=== PATIENT | female | born 1950 | race Caucasian/White ===

== ENCOUNTER 2016-04-05 08:44 | Day surgery (SDC) | payer MEDICARE, OTHER ==
--- NOTE | 2016-04-03 14:04 | HP ---
PROCEDURE DATE: 04/05/16 HISTORY OF PRESENT ILLNESS: The patient is a 66 y/o this January with nausea and flu-like symptoms, some chills. Initially, she thought it was secondary to some medication she is on. She was having a little bit of right back and chest area pain. She ended up having US that showed cholelithiasis and some gallbladder wall thickening. PAST MEDICAL HISTORY: Hypothyroidism. CURRENT MEDICATIONS: Include Bupropion, duloxetine, Synthroid, trazodone, Zofran, Zyrtec. ALLERGIES: NKDA. PAST SURGICAL HISTORY: Had tubal surgery in the past. She had foot surgery and hysterectomy in the past. FAMILY HISTORY: Diabetes, heart disease, hypertension. SOCIAL HISTORY: No smoking or alcohol abuse. REVIEW OF SYSTEMS: 10 systems reviewed. No chest pains or palpitations. Other systems negative or noncontributory other than above and per preadmission questionnaire. PHYSICAL EXAMINATION: GENERAL: No acute distress. HEENT: Sclerae nonicteric. NECK: No JVD. CHEST: Equal excursion. Nonlabored breathing. CVS: Regular rate and rhythm. ABDOMEN: Soft. No peritoneal signs. Minimal tenderness in right upper quadrant/right flank. EXTREMITIES: No significant edema. NEURO: Alert, moving extremities symmetrically. No gross motor deficits noted. IMPRESSION: 1. SYMPTOMATIC CHOLELITHIASIS, PROBABLE CHRONIC CHOLECYSTITIS. FEEL THE PATIENT WOULD BENEFIT FROM CHOLECYSTECTOMY. She was shown the risk sheet and gallbladder pamphlet and explained the procedure in detail, but not limited to, bleeding; infection; risk of trocar injury or hernia; small risk of bowel, bladder, or blood vessel injury; small risk of bile leak, bile duct injury, or retained stone or sludge possibly requiring further procedures either open or endoscopic retrograde cholangiopancreatography; general risks of anesthesia, deep vein thrombosis, pulmonary embolism, or pneumonia; postoperative risks of nausea, vomiting, aches, or pains as well as risk of bloating; risk of constipation and/or loose stools possibly chronic in nature. She understands as well as the risk of possibility of converting to an open procedure requiring hospital stay as well as the possibility that this procedure may not improve her symptoms and she may need further work-up and/or testing or other studies or procedures. She understands and agrees to the planned procedure. Will proceed with laparoscopic cholecystectomy, possible open as an outpatient.
[~2016-04-05 08:44] MED LIST: APRESOLINE 20 MG/ML INJ IV ONE; BLOXIVERZ IV ONE; DIPRIVAN 200 MG/20 ML IV ONE; Decadron 4 MG INJ IV ONE; Ephedrine Sulfate 50 MG/ML IV ONE; Lactated Ringers 1,000 ML IV ONE; ROBINUL IV ONE; SUBLIMAZE 100 MCG/2 ML IV ONE; Sensorcaine 0.25% 10 ML ONE; TORAdol 30 mg Injection IV ONE; TRANDATE 20 MG/5 ML SYRINGE IV ONE; Versed 2 MG/2 ML Injection IV ONE; Zemuron 100 MG/10 ML IV ONE; Zofran 4 MG/2 ML VIAL IV ONE
[2016-04-05] MEDS ORDERED: MEFOXIN 2 GM PREMIX** 50 ML IV ONE ×2 (08:52→09:01)
[2016-04-05] MEDS ORDERED: Pepcid 20 MG VIAL IV ONE ×2 (08:52→09:01)
[2016-04-05] MEDS ORDERED: Lactated Ringers 1,000 ML IV SCH (09:00)
[2016-04-05] MEDS ORDERED: Lactated Ringers 1,000 ML IV ONE (09:01)
[2016-04-05] MEDS ORDERED: OFIRMEV 100 ML IV ONE (10:38)
[2016-04-05] MEDS ORDERED: SUBLIMAZE 100 MCG/2 ML ONE (12:03)
[2016-04-05] MEDS ORDERED: NORCO 5/325 MG PO PRN (13:01)
--- NOTE | 2016-04-05 13:41 | OP ---
SURGERY DATE: 04/05/15 SURGERY TIME: 1026 PREOPERATIVE DIAGNOSIS: 1. SYMPTOMATIC CHOLELITHIASIS, CHRONIC CHOLECYSTITIS. POSTOPERATIVE DIAGNOSIS: 1. SYMPTOMATIC CHOLELITHIASIS, CHRONIC CHOLECYSTITIS. PROCEDURE: 1. Laparoscopic cholecystectomy. SURGEON: Dr. Mario Seo. ANESTHESIA: General. ESTIMATED BLOOD LOSS: Minimal. INDICATIONS: As noted above. Risks and benefits explained in detail, but not limited to. Consent was obtained. DESCRIPTION OF PROCEDURE AND FINDINGS: The patient was taken to the OR. General anesthesia was induced. The abdomen was prepped and draped in the usual sterile fashion. After official time-out, no disagreement in planned procedure. Transverse incision made at the supraumbilical area. Fascia grasped and pulled up. Veress needle inserted. Tested with saline. Pneumoperitoneum accomplished insufflating from an opening pressure of 0-15. An 11 mm bladeless port and camera were inserted without difficulty followed by two 5 mm right upper quadrant ports and a 5 mm epigastric port. The gallbladder was grasped and retracted up over the edge of the liver. Fibrofatty adhesions were carefully dissected from posterolateral to anterior fashion slowly, carefully dissecting down the extensive inflammation around the cystic duct/infundibular area junction. The main cystic artery was carefully isolated, clipped X 3, and divided. This opened up the angle at the cystic duct/infundibular area. Slowly, carefully well skeletonized so the critical view was obtained both anteriorly and posteriorly. Once this was done, the cystic duct was then clipped X 3 and divided. Additional oozing side branches off the cystic artery were clipped as necessary staying directly on the gallbladder wall. The gallbladder was slowly, carefully dissected free from its dense, almost concrete attachments to the liver bed. One of the graspers tore a small, little, tiny hole in the gallbladder spilling a small amount of bile. There was no evidence of any stone spillage. The gallbladder was slowly, carefully dissected free staying directly on the gallbladder wall elevating it well away from the liver bed. Just prior to releasing the final attachments to the anterior edge of the liver, the liver bed reinspected. Clips noted to be in placed in the cystic duct/cystic artery stumps. There were no signs of any active bleeding or bile leakage from the liver bed itself. Clips noted to be in place in the cystic duct/cystic artery stumps. The gallbladder was released from its final attachments to the anterior edge of the liver, placed in a Pleatman's sac, and pulled out the umbilical wound. There was a large enough group of stones to require spreading with the clamp. It should be noted the fragile skin just a little bit making the skin incision slightly larger in this area. The gallbladder was able to be pulled free in the Pleatman's sac and passed off. Port was replaced. A copious amount of irrigation accomplished lateral to the liver and subhepatic space, irrigating until clear. Liver bed reinspected. Clips noted to be in place in the cystic duct/cystic artery stumps. There were no signs of any active bleeding or bile leakage at this point with the clips noted to be in place at the cystic duct/cystic artery stumps. It was felt there was no benefit of drain placement. At this point, the fascial defect in the umbilical area was closed with puncture closure device under direct vision with the camera after a copious amount of irrigation, irrigating as clear as possible. Pneumoperitoneum decompressed. Wounds irrigated out. Additional UR6 0-Vicryl was placed on the fascia that had been enlarged slightly to allow for the gallbladder removal at the supraumbilical port site under direct vision with the camera. Copious amount of irrigation, irrigating until clear. Skin incision closed with 4-0 Vicryl. Steri-strips and sterile dressing applied. 0.25% Marcaine local had been injected along each skin incision and fascial defect. The patient tolerated the procedure well. There were no immediate complications. Findings were discussed with the family out in the waiting area.
[2016-04-05 13:47] VITALS: BP 101/48; O2SAT 94
[2016-04-05 13:55] VITALS: PULSE 68
== END 2016-04-05 14:00 | disposition home or self-care (01) ==
LOC: SDC 08:44
PROVIDERS: ATTEND Surgery
PROC: 0FT44ZZ Resection of Gallbladder, Percutaneous Endoscopic Approach (ICD-10-PCS; principal; 2016-04-05)
DX: K80.10 Calculus of gallbladder with chronic cholecystitis without obstruction (principal); E03.9 Hypothyroidism, unspecified; Z79.899 Other long term (current) drug therapy
CPT/HCPCS: 00790; 36415; J0360; J0694; J1100; J1885; J2250; J2405; J2704; J2710; J3010

== ENCOUNTER 2018-02-01 05:51 | Day surgery (SDC) | payer MEDICARE, OTHER ==
[2018-02-01] MEDS ORDERED: DIPRIVAN 200 MG/20 ML IV ONE (05:52)
[2018-02-01] MEDS ORDERED: Ketamine HCl 50 MG/ML IV ONE (05:52)
[2018-02-01] MEDS ORDERED: Lactated Ringers 1,000 ML IV SCH (06:30)
[2018-02-01 08:54] VITALS: BP 170/80; PULSE 71; O2SAT 97
--- NOTE | 2018-02-01 10:26 | OP ---
SURGERY DATE/TIME: 02/01/2018 0747 PREOPERATIVE DIAGNOSES: 1) Persistent nausea. 2) Weight loss. POSTOPERATIVE DIAGNOSIS: Gastric polyps. PROCEDURE: EGD. SURGEON: Carlos Ware M.D. ANESTHESIA: MAC by Mario Sarkar CRNA. ESTIMATED BLOOD LOSS: Minimal. SPECIMENS: Cold forceps polypectomy of gastric polyp. DESCRIPTION OF PROCEDURE: After informed written consent was obtained, the patient was taken to the endoscopy suite. She underwent monitored anesthesia and a bite block was inserted. The endoscope was inserted in the posterior oropharynx and under direct visualization the posterior oropharynx was traversed. The esophageal mucosa was normal upon entry into the gastric cavity and there was a normal rugated gastric mucosa. There were small gastric polyps but no areas of bleeding or ulceration were present. The pylorus was traversed and the duodenum had a normal mucosal appearance free of any lesions or defects. Upon withdrawal again gastric polyps were noted. A financial services representative lesion was removed in its entirety with cold forceps. The gastroesophageal junction and esophageal mucosa again appeared normal upon withdrawal. The scope was removed and the patient was transferred to the recovery room in good condition.
== END 2018-02-01 09:08 | disposition home or self-care (01) ==
LOC: SDC 05:51
PROVIDERS: ATTEND Family Medicine
DX: K31.7 Polyp of stomach and duodenum (principal); R11.0 Nausea; R63.4 Abnormal weight loss
CPT/HCPCS: 88305; 94250; J2704

== ENCOUNTER 2019-04-23 08:33 | Day surgery (SDC) | payer MEDICARE, OTHER ==
--- NOTE | 2019-04-23 08:53 | HP ---
DATE OF SURGERY: 04/23/2019 HISTORY OF PRESENT ILLNESS: The patient is a 69 year-old had some bad reflux recently upper esophagus, some problems with bread and large pills getting stuck in the upper esophagus. She is in need of upper endoscopy for further evaluation. PAST MEDICAL HISTORY: Hypothyroidism. Depression. Osteopenia. Macular degeneration. PAST SURGICAL HISTORY: Cholecystectomy in the past. Hysterectomy. Foot surgery. Tubal in the past. MEDICATIONS: Synthroid. Wellbutrin. Preservision. Zyrtec. Calcium. Omeprazole. CBD oil. ALLERGIES: NKDA. FAMILY HISTORY: Hypertension, heart disease, diabetes. No family history of esophageal cancer. SOCIAL HISTORY: No smoking or alcohol abuse. REVIEW OF SYSTEMS: Fourteen systems reviewed. No chest pain or palpitations other systems negative or noncontributory as above and per preadmission questionnaire. PHYSICAL EXAMINATION: GENERAL: No acute distress. HEENT: Sclerae nonicteric. NECK: No JVD. CHEST: Equal excursion, nonlabored breathing. CVS: Regular rate and rhythm. ABDOMEN: Soft. EXTREMITIES: No significant edema. NEURO: Alert, oriented, moving extremities symmetrically. No gross motor deficits noted. IMPRESSION: Dysphagia, increased reflux. She is in need of upper endoscopy possible biopsy, possible dilatation. General risk of bleeding or infection, risk of bowel injury or perforation possibly requiring open procedure, risk of missed or nondiagnosis or incomplete exam possibly requiring barium swallow, other studies or procedures. She understands if dilatation accomplished that it might need to be repeated again down the road. She also understands there is a possibility this could be more of a functional or neurologic issue and that dilatation may not improve her symptoms. She understands and agrees to the planned procedure and will proceed with EGD with possible biopsy, possible dilatation as an outpatient.
[2019-04-23] MEDS ORDERED: Lactated Ringers 1,000 ML IV SCH (09:30)
[2019-04-23] MEDS ORDERED: DIPRIVAN 200 MG/20 ML IV ONE ×2 (10:39→10:56)
[2019-04-23 12:10] VITALS: O2SAT 98
[2019-04-23 12:19] VITALS: BP 189/77; PULSE 60
--- NOTE | 2019-04-23 14:47 | OP ---
SURGERY DATE/TIME: 04/23/2019 1041 PREOPERATIVE DIAGNOSIS: Dysphagia, increased reflux. POSTOPERATIVE DIAGNOSES: 1) Minimal to mild gastritis. 2) Schatzki's ring distal esophagus; rule out obstruction. 3) Proximal fundal polyps versus hyperplasia, path pending. 4) Symptomatic proximal esophageal narrowing and spasm. 5) Dilatation. PROCEDURES: 1) EGD with cold biopsy of the antrum to evaluate for Helicobacter pylori. 2) Cold biopsy of fundal polyps versus hyperplasia proximal stomach. 3) Proximal esophageal dilatation (symptomatic proximal esophageal narrowing and spasm) size 20 balloon dilator. SURGEON: Dr. Mario Seo. ANESTHESIA: MAC. ESTIMATED BLOOD LOSS: Minimal. INDICATIONS: As noted above. Risks and benefits explained in detail and not limited to and consent obtained. DESCRIPTION OF PROCEDURE AND FINDINGS: The patient is taken to the endoscopy room. MAC anesthesia introduced. After official time out and no disagreement with planned procedure, video gastroscope passed down the oropharynx. It appeared to have some proximal esophageal narrowing and spasm. There was no obvious mass or lesion to biopsy. As she is having symptoms there, it was felt worthwhile attempting a trial of dilatation with balloon at the end of the procedure. The scope was able to be just passed through here through the distal esophagus to the patent pylorus to the junction of the second and third portion of the duodenum. Duodenum and duodenal bulb were grossly unremarkable. Back in the stomach she had some minimal to mild gastritis. Cold biopsy taken to evaluate for Helicobacter pylori. On retroflex the gastroesophageal junction snug against the scope. No signs of any obvious significant hiatal hernia. No signs of any obvious ulcers in the proximal stomach. She had multiple smooth fundal area polyps versus hyperplasia. Cold biopsies taken of several of these. The scope pulled back to the gastroesophageal junction. Z-line was crisp. There did appear to be a Schatzki's ring but this did not appear to be causing any symptomatic narrowing or obstruction here at this point. It was felt that this area did not need dilated at this moment. No signs of any obvious mucosal lesions on withdrawal of the scope up to the proximal esophageal narrowed area. Again, there was no evidence of any mass or lesion to biopsy but because she is having symptoms there it was felt she would benefit from esophageal dilatation today. Therefore the scope was passed back down in the stomach. A 20 balloon catheter carefully inserted. It was then pulled back to the narrowed proximal esophageal area and gradually inflated first stage 45 seconds, second stage 45 seconds, final stage size 20 balloon dilator for 2 minutes. The balloon catheter is then released and withdrawn. The scope much more easily passed through this area. There was mild superficial mucosal abrasion. There did not appear to be any evidence of full thickness issues or injury secondary to balloon dilatation of this symptomatic proximal esophageal narrowing and spasm. The scope is withdrawn. The patient tolerated the procedure well. There were no immediate complications. Findings discussed with the family out in the waiting area.
== END 2019-04-23 12:22 | disposition home or self-care (01) ==
LOC: SDC 08:33
PROVIDERS: ATTEND Surgery
DX: K29.70 Gastritis, unspecified, without bleeding (principal); K22.2 Esophageal obstruction; K31.7 Polyp of stomach and duodenum
CPT/HCPCS: 88305; 99100; C1726; J2704

== ENCOUNTER 2020-07-28 08:37 | Day surgery (SDC) | payer MEDICARE, OTHER ==
--- NOTE | 2020-07-28 08:03 | HP ---
DATE OF SURGERY: 07/28/2020 HISTORY OF PRESENT ILLNESS: The patient is a 70 year-old with some dysphagia with some solids or pills at times. She has history of hyperplastic polyps that were clumped together in the past. She is in need of re-evaluation given this group of polyps and given her dysphagia she needs upper endoscopy possible biopsy, possible dilatation. PAST MEDICAL HISTORY: Hypothyroidism. Arthritis. Macular degeneration. Hypertension. Depression. PAST SURGICAL HISTORY: Tubal ligation. Hysterectomy. Cholecystectomy. Foot surgery. MEDICATIONS: Synthroid, liothyronine, duloxetine, bupropion, metoprolol, Zyrtec, calcium, PreserVision, CBD oil. ALLERGIES: NKDA. FAMILY HISTORY: Heart disease. Diabetes. Liver disease. SOCIAL HISTORY: No significant alcohol abuse. REVIEW OF SYSTEMS: Fourteen systems reviewed. No chest pain or palpitations. Other systems negative or noncontributory as above and per preadmission questionnaire. PHYSICAL EXAMINATION: GENERAL: No acute distress. HEENT: Sclerae nonicteric. NECK: No JVD. CHEST: Equal excursion, nonlabored breathing. CVS: Regular rate and rhythm. ABDOMEN: Soft. No peritoneal signs. EXTREMITIES: No significant edema. NEURO: Alert, oriented, moving extremities symmetrically. PSYCH: Appropriate mood and affect. IMPRESSION: Dysphagia, history of some gastric polyps in the past. She is in need of EGD possible biopsy possible dilatation. Risks and benefits explained in detail including but not limited to bleeding or infection, risk of bowel injury or perforation possibly requiring further procedure, risk of missed or nondiagnosis or incomplete exam possibly requiring other studies, possibility dilatation performed and improves her swallowing may need to be repeated again down the road at some point. She also understands the possibility it could be more functional or neurologic issue and dilatation may not improve her symptoms. If she does not have a narrowed area then dilatation may not be required. She understands and agrees to the planned procedure, proceed with EGD possible biopsy possible dilatation as an outpatient.
[2020-07-28] MEDS ORDERED: Lactated Ringers 1,000 ML IV SCH (09:00)
[2020-07-28] MEDS ORDERED: Lactated Ringers 1,000 ML IV ONE ×2 (09:22→11:03)
[2020-07-28] MEDS ORDERED: DIPRIVAN 200 MG/20 ML IV ONE ×2 (10:46→11:00)
[2020-07-28 11:50] VITALS: O2SAT 94
[2020-07-28 12:18] VITALS: BP 151/78; PULSE 61
--- NOTE | 2020-07-29 09:37 | OP ---
SURGERY DATE/TIME: 07/28/2020 1045 PREOPERATIVE DIAGNOSIS: Dysphagia, prior history of gastric polyp, in need of follow up upper endoscopy possible dilatation. POSTOPERATIVE DIAGNOSES: 1) Proximal esophageal narrowing and spasm without any obvious mass to biopsy. 2) Small proximal gastric polyps. 3) Minimal to mild gastritis. PROCEDURES: 1) EGD with cold biopsy of antrum for Helicobacter pylori. 2) Cold biopsy polyp in the fundus. 3) Proximal esophageal dilatation (size 20 balloon dilator). SURGEON: Dr. Mario Seo. ANESTHESIA: MAC. ESTIMATED BLOOD LOSS: Minimal. INDICATIONS: As noted above. Risks and benefits explained in detail and not limited to and consent obtained. DESCRIPTION OF PROCEDURE AND FINDINGS: The patient is taken to the endoscopy room. MAC anesthesia introduced. After official time out and no disagreement with planned procedure, a bite block positioned. Video gastroscope passed down the oropharynx. There was some narrowing and spasm in the proximal esophagus. There is no evidence of any obvious mass or lesion to biopsy. Scope was able to be just passed through here. As she is having symptoms here it is felt this warranted dilatation at the end of the procedure. The scope is passed back down through the patent pylorus to the junction of the second and third portion of the duodenum. The third, second and first portion of the duodenum grossly unremarkable. Back in the stomach she had some mild gastric erythema, some minimal to mild gastritis. Cold biopsy taken to evaluate for Helicobacter pylori. Good hemostasis noted. There were no signs of any obvious ulcers. On retroflex some small gastric polyps in the proximal stomach in the fundus this seemed to be less than impressive than last time she had endoscopy but cold biopsies taken again to evaluate for any changes. Good hemostasis was noted. Biopsy sent off. The gastroesophageal junction was about 39 cm. She did have a little bit of Schatzki ring but there was not any narrowing here to cause any issues so it was felt this did not warrant any intervention right now. Otherwise the remainder of the esophageal mucosa appeared unremarkable up to the proximal esophageal narrowing and spasm. Again, there was no obvious mass or mucosal lesion to biopsy in this area but it was felt given her symptoms here given the symptomatic narrowing she warranted dilatation. Therefore the scope was passed back down in the stomach. A 20 balloon catheter carefully inserted and carefully pulled back up to the proximal esophageal narrowing and spasm area. It was carefully inflated first stage size 18 for 30 to 45 seconds, second stage for 45 seconds, size 19 in the final stage, size 20 balloon dilator for 2 minutes. The balloon catheter was then decompressed and carefully withdrawn. The scope much more easily passed through this area back down the stomach and carefully withdrawn. There is no evidence of any full thickness issues or injury secondary to dilatation. There was superficial mucosal abrasion up in the dilated area but no evidence of any gross full thickness issues. The scope is withdrawn. The patient tolerated the procedure well. There were no immediate complications. Findings discussed with the family out in the waiting area. She will do room temperature liquids for four hours and advance diet as tolerated.
== END 2020-07-28 12:25 | disposition home or self-care (01) ==
LOC: SDC 08:37
PROVIDERS: ATTEND Surgery
DX: K22.2 Esophageal obstruction (principal); K29.70 Gastritis, unspecified, without bleeding; K31.7 Polyp of stomach and duodenum; I10 Essential (primary) hypertension; E03.9 Hypothyroidism, unspecified; Z79.899 Other long term (current) drug therapy; Z87.19 Personal history of other diseases of the digestive system
CPT/HCPCS: 81001; 99100; C1726; J2704

== ENCOUNTER 2020-08-14 10:29 | Emergency (ER) | payer MEDICARE, OTHER ==
--- NOTE | 2020-08-14 10:54 | ERPHSYRPT ---
- History of Present Illness Time Seen by Provider: 08/14/20 10:54 Source: patient, family Exam Limitations: no limitations Physician History: This is a 70-year-old white female patient of Dr. Baker who has a history of hypothyroidism, hypertension and depression. In the last 3 weeks she has had sick significant diarrheal episodes and ultimately was treated after a few emergency room department visits and her diarrheal episodes have subsided. She has known left-sided kidney stone that has been observed. Her primary complaint today is weakness and generalized muscle aches and pains. She does not specifically have chest pain. She does have some shortness of breath with exertion. She has no significant abdominal pain. She intermittently has frequency alternating with normal passage of urine. She has no dysuria. She does not have significant flank pain. She has no cough. She has not had a fever. Again, her primary complaint today is generalized muscle aches and pains and weakness. She has had no nausea vomiting and no further diarrhea Timing/Duration: week(s) (1) Severity: moderate Modifying Factors: Improves With: movement Associated Symptoms: shortness of breath, weakness, No nausea, No vomiting, No abdominal pain, No cough, No chest pain, No fever, No syncope Allergies/Adverse Reactions: No Known Drug Allergies Allergy (Verified 08/14/20 10:59) Home Medications: Cetirizine HCl [Zyrtec] 10 mg PO DAILY 04/17/19 [History] Levothyroxine Sodium 75 Mcg [Synthroid 75 Mcg] 88 mcg PO DAILY 04/17/19 [History] Liothyronine Sodium [Cytomel] 5 mcg PO DAILY 04/17/19 [History] Cannabidiol (Cbd) [Epidiolex] 1 ml PO DAILY 04/23/19 [History] Duloxetine HCl [Cymbalta] 60 mg DAILY 07/15/20 [History] Vit C/E/Zn/Coppr/Lutein/Zeaxan [Preservision Areds 2 Softgel] 1 each PO BID 07/15/20 [History] Bupropion HCl [Wellbutrin Xl] 300 mg PO DAILY 07/28/20 [History] Metoprolol Tartrate 25 mg [Lopressor 25MG Tab] 25 mg PO DAILY 07/28/20 [History] Travel Risk - International Travel Have you traveled outside of the country in past 3 weeks: No - Coronavirus Screening Are you exhibiting any of the following symptoms?: No Close contact with a COVID-19 positive Pt in past 14-21 Days: No - Review of Systems Constitutional: Weakness Eyes: No Symptoms Ears, Nose, & Throat: No Symptoms Respiratory: No Symptoms Cardiac: No Symptoms Abdominal/Gastrointestinal: No Symptoms Genitourinary Symptoms: No Symptoms Musculoskeletal: Myalgias Skin: No Symptoms Neurological: No Symptoms Psychological: No Symptoms Endocrine: No Symptoms Hematologic/Lymphatic: No Symptoms Immunological/Allergic: No Symptoms All Other Systems: Reviewed and Negative - Past Medical History Pertinent Past Medical History: Yes Neurological History: No Pertinent History ENT History: Cataracts, Macular Degeneration Cardiac History: No Pertinent History, Deep Vein Thrombosis, Hypertension Respiratory History: Sleep Apnea Endocrine Medical History: Hypothyroidism Musculoskeletal History: Arthritis, Rheumatoid Arthritis GI Medical History: GERD, Gallbladder Disease History: No Pertinent History Psycho-Social History: Depression Female Reproductive Disorders: Other Other Medical History: ovarian cyst,skin [id number],states borderline sleep apnea, has machine but doesnt use,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 - Past Surgical History Past Surgical History: Yes Neuro Surgical History: No Pertinent History Cardiac: No Pertinent History Respiratory: No Pertinent History Gastrointestinal: Cholecystectomy Genitourinary: No Pertinent History Musculoskeletal: Orthopedic Surgery Female Surgical History: Hysterectomy, Tubal Ligation Other Surgical History: bilateral foot bunionectomy and hammertoe repairs,bilat foot arch implants, - Social History Smoking Status: Never smoker Exposure to second hand smoke: Yes Drug Use: none - Nursing Vital Signs Nursing Vital Signs: Initial Vital Signs Temperature 97.2 F 08/14/20 10:49 Pulse Rate 84 08/14/20 10:49 Respiratory Rate 18 08/14/20 10:49 Blood Pressure 180/99 08/14/20 10:49 O2 Sat by Pulse Oximetry 98 08/14/20 10:49 Pain Scale Pain Intensity 7 - Physical Exam General Appearance: no apparent distress, alert, anxiety Eye Exam: PERRL/EOMI, eyes nml inspection Ears, Nose, Throat Exam: normal ENT inspection, moist mucous membranes Neck Exam: normal inspection, non-tender, supple, full range of motion Respiratory Exam: normal breath sounds, lungs clear, airway intact, No chest tenderness, No respiratory distress Cardiovascular Exam: regular rate/rhythm, normal heart sounds, normal peripheral pulses Gastrointestinal/Abdomen Exam: soft, normal bowel sounds, No tenderness Pelvic Exam: not done Rectal Exam: not done Back Exam: normal inspection, normal range of motion, No CVA tenderness, No vertebral tenderness Extremity Exam: normal inspection, normal range of motion, pelvis stable Neurologic Exam: alert, oriented x 3, cooperative, handicapper harness racing II-XII nml as tested, normal mood/affect, nml cerebellar function, nml station & gait, sensation nml Skin Exam: normal color, warm, dry Lymphatic Exam: No adenopathy SpO2 Interpretation: normal O2 Delivery: Room Air - Course Nursing assessment & vital signs reviewed: Yes EKG Interpreted by Me: RATE (82), Sinus Rhythm, NORMAL AXIS, NORMAL INTERVALS, NORMAL QRS, NORMAL ST-T, Other (No acute ischemic changes. There is no comparison EKG available) Ordered Tests: Active Orders 24 hr Category Date Time Status EKG-ER Only STAT Care 08/14/20 11:34 Active IV Insertion STAT Care 08/14/20 11:34 Active ABDOMEN AND PELVIS W/0 CONTRAS [CT] Stat Exams 08/14/20 11:36 Completed BLOOD CULTURE Stat Lab 08/14/20 11:36 Ordered CBC W DIFF Stat Lab 08/14/20 11:35 Completed CMP Stat Lab 08/14/20 11:34 Completed CULTURE,URINE Stat Lab 08/14/20 11:42 Received D-DIMER QUANTITATIVE Stat Lab 08/14/20 11:40 Completed INFLUENZA A+B TONY Stat Lab 08/14/20 13:10 Completed Lactic Acid Stat Lab 08/14/20 11:34 Completed MAGNESIUM Stat Lab 08/14/20 11:34 Completed T4 (Thyroxine) Stat Lab 08/14/20 Completed TROPONIN Q3H Lab 08/14/20 11:45 Completed TROPONIN Q3H Lab 08/14/20 14:45 Ordered TROPONIN Q3H Lab 08/14/20 17:45 Ordered TROPONIN Q3H Lab 08/14/20 20:45 Ordered TROPONIN Q3H Lab 08/14/20 23:45 Ordered TSH [TSH, 3RD Generation] Stat Lab 08/14/20 11:41 Completed UA W/RFX UR CULTURE Stat Lab 08/14/20 11:42 Completed Medication Summary Discontinued Medications Generic Name Dose Route Start Last Admin Trade Name Freq PRN Reason Stop Dose Admin Sodium Chloride 1,000 mls @ 999 mls/hr 08/14/20 11:34 08/14/20 13:26 Sodium Chloride 0.9% 1000 Ml IV 08/14/20 12:34 Infused .Q1H1M STA Infusion Sodium Chloride Confirm 08/14/20 11:43 Sodium Chloride 0.9% 1000 Ml Administered 08/14/20 11:44 Dose 1,000 mls @ ud .ROUTE .STK-MED ONE Lab/Rad Data: Laboratory Result Diagrams 08/14/20 11:35 08/14/20 11:34 Laboratory Results 08/14/20 08/14/20 08/14/20 Range/Units Unknown 13:10 11:45 WBC (4.0-10.5) K/mm3 RBC (4.1-5.4) M/mm3 Hgb (12.0-16.0) gm/dl Hct (35-47) % MCV (78-100) fl MCH (26-32) pg MCHC (32-36) g/dl RDW (11.5-14.0) % Plt Count (150-450) K/mm3 MPV (7.5-11.0) fl Gran % (36.0-66.0) % Eos # (Auto) (0-0.5) Absolute Lymphs (auto) (1.0-4.6) Absolute Monos (auto) (0.0-1.3) Lymphocytes % (24.0-44.0) % Monocytes % (0.0-12.0) % Eosinophils % (0.00-5.0) % Basophils % (0.0-0.4) % Absolute Granulocytes (1.4-6.9) Basophils # (0-0.4) D-Dimer (215-500) ng/mL Sodium (137-145) mmol/L Potassium (3.5-5.1) mmol/L Chloride (98-107) mmol/L Carbon Dioxide (22-30) mmol/L Anion Gap (5-15) MEQ/L BUN (7-17) mg/dL Creatinine (0.52-1.04) mg/dL Estimated GFR ML/MIN Glucose (74-106) mg/dL Lactic Acid (0.4-2.0) Calcium (8.4-10.2) mg/dL Magnesium (1.6-2.3) mg/dL Total Bilirubin (0.2-1.3) mg/dL AST (14-36) U/L ALT (0-35) U/L Alkaline Phosphatase (38-126) U/L Troponin I < 0.012 (0.000-0.034) ng/mL Serum Total Protein (6.3-8.2) g/dL Albumin (3.5-5.0) g/dL Thyroxine (T4) 10.0 (5.53-10.96) ug/dL TSH 3rd Generation (0.47-4.68) mIU/L Urine Color (YELLOW) Urine Appearance (CLEAR) Urine pH (5-6) Ur Specific Molt (1.005-1.025) Urine Protein (Negative) Urine Ketones (NEGATIVE) Urine Blood (0-5) Hunter/ul Urine Nitrite (NEGATIVE) Urine Bilirubin (NEGATIVE) Urine Urobilinogen (0-1) mg/dL Ur Leukocyte Esterase (NEGATIVE) Urine WBC (Auto) (0-5) /HPF Urine RBC (Auto) (0-2) /HPF U Hyaline Cast (Auto) (0-2) /LPF U Epithel Cells (Auto) (FEW) /HPF Urine Bacteria (Auto) (NEGATIVE) /HPF Urine Culture Reflexed (NO) Urine Glucose (NEGATIVE) mg/dL Influenza Type A Ag NEGATIVE (NEGATIVE) Influenza Type B Ag NEGATIVE (NEGATIVE) 08/14/20 08/14/20 08/14/20 Range/Units 11:42 11:41 11:40 WBC (4.0-10.5) K/mm3 RBC (4.1-5.4) M/mm3 Hgb (12.0-16.0) gm/dl Hct (35-47) % MCV (78-100) fl MCH (26-32) pg MCHC (32-36) g/dl RDW (11.5-14.0) % Plt Count (150-450) K/mm3 MPV (7.5-11.0) fl Gran % (36.0-66.0) % Eos # (Auto) (0-0.5) Absolute Lymphs (auto) (1.0-4.6) Absolute Monos (auto) (0.0-1.3) Lymphocytes % (24.0-44.0) % Monocytes % (0.0-12.0) % Eosinophils % (0.00-5.0) % Basophils % (0.0-0.4) % Absolute Granulocytes (1.4-6.9) Basophils # (0-0.4) D-Dimer 495 (215-500) ng/mL Sodium (137-145) mmol/L Potassium (3.5-5.1) mmol/L Chloride (98-107) mmol/L Carbon Dioxide (22-30) mmol/L Anion Gap (5-15) MEQ/L BUN (7-17) mg/dL Creatinine (0.52-1.04) mg/dL Estimated GFR ML/MIN Glucose (74-106) mg/dL Lactic Acid (0.4-2.0) Calcium (8.4-10.2) mg/dL Magnesium (1.6-2.3) mg/dL Total Bilirubin (0.2-1.3) mg/dL AST (14-36) U/L ALT (0-35) U/L Alkaline Phosphatase (38-126) U/L Troponin I (0.000-0.034) ng/mL Serum Total Protein (6.3-8.2) g/dL Albumin (3.5-5.0) g/dL Thyroxine (T4) (5.53-10.96) ug/dL TSH 3rd Generation 6.900 H (0.47-4.68) mIU/L Urine Color YELLOW (YELLOW) Urine Appearance CLEAR (CLEAR) Urine pH 6.0 (5-6) Ur Specific Molt 1.010 (1.005-1.025) Urine Protein NEGATIVE (Negative) Urine Ketones NEGATIVE (NEGATIVE) Urine Blood SMALL (0-5) Hunter/ul Urine Nitrite NEGATIVE (NEGATIVE) Urine Bilirubin NEGATIVE (NEGATIVE) Urine Urobilinogen NEGATIVE (0-1) mg/dL Ur Leukocyte Esterase SMALL (NEGATIVE) Urine WBC (Auto) NONE (0-5) /HPF Urine RBC (Auto) 0-2 (0-2) /HPF U Hyaline Cast (Auto) 3-5 (0-2) /LPF U Epithel Cells (Auto) NONE (FEW) /HPF Urine Bacteria (Auto) NONE (NEGATIVE) /HPF Urine Culture Reflexed YES (NO) Urine Glucose NEGATIVE (NEGATIVE) mg/dL Influenza Type A Ag (NEGATIVE) Influenza Type B Ag (NEGATIVE) 08/14/20 08/14/20 08/14/20 Range/Units 11:35 11:34 11:34 WBC 7.2 (4.0-10.5) K/mm3 RBC 4.28 (4.1-5.4) M/mm3 Hgb 12.2 (12.0-16.0) gm/dl Hct 38.7 (35-47) % MCV 90.4 (78-100) fl MCH 28.5 (26-32) pg MCHC 31.5 L (32-36) g/dl RDW 14.5 H (11.5-14.0) % Plt Count 442 (150-450) K/mm3 MPV 10.4 (7.5-11.0) fl Gran % 55.5 (36.0-66.0) % Eos # (Auto) 0.05 (0-0.5) Absolute Lymphs (auto) 2.08 (1.0-4.6) Absolute Monos (auto) 1.04 (0.0-1.3) Lymphocytes % 28.7 (24.0-44.0) % Monocytes % 14.4 H (0.0-12.0) % Eosinophils % 0.7 (0.00-5.0) % Basophils % 0.7 (0.0-0.4) % Absolute Granulocytes 4.02 (1.4-6.9) Basophils # 0.05 (0-0.4) D-Dimer (215-500) ng/mL Sodium 135 L (137-145) mmol/L Potassium 4.1 (3.5-5.1) mmol/L Chloride 102 (98-107) mmol/L Carbon Dioxide 25 (22-30) mmol/L Anion Gap 12.7 (5-15) MEQ/L BUN 12 (7-17) mg/dL Creatinine 0.94 (0.52-1.04) mg/dL Estimated GFR > 60.0 ML/MIN Glucose 93 (74-106) mg/dL Lactic Acid 1.5 (0.4-2.0) Calcium 9.3 (8.4-10.2) mg/dL Magnesium 2.1 (1.6-2.3) mg/dL Total Bilirubin 0.40 (0.2-1.3) mg/dL AST 30 (14-36) U/L ALT 21 (0-35) U/L Alkaline Phosphatase 77 (38-126) U/L Troponin I (0.000-0.034) ng/mL Serum Total Protein 7.3 (6.3-8.2) g/dL Albumin 4.2 (3.5-5.0) g/dL Thyroxine (T4) (5.53-10.96) ug/dL TSH 3rd Generation (0.47-4.68) mIU/L Urine Color (YELLOW) Urine Appearance (CLEAR) Urine pH (5-6) Ur Specific Molt (1.005-1.025) Urine Protein (Negative) Urine Ketones (NEGATIVE) Urine Blood (0-5) Hunter/ul Urine Nitrite (NEGATIVE) Urine Bilirubin (NEGATIVE) Urine Urobilinogen (0-1) mg/dL Ur Leukocyte Esterase (NEGATIVE) Urine WBC (Auto) (0-5) /HPF Urine RBC (Auto) (0-2) /HPF U Hyaline Cast (Auto) (0-2) /LPF U Epithel Cells (Auto) (FEW) /HPF Urine Bacteria (Auto) (NEGATIVE) /HPF Urine Culture Reflexed (NO) Urine Glucose (NEGATIVE) mg/dL Influenza Type A Ag (NEGATIVE) Influenza Type B Ag (NEGATIVE) - Progress Progress: improved, re-examined Progress Note: 08/14/20 13:23 CAT scan of the abdomen and pelvis without contrast shows no evidence of any ureterolithiasis and no renal stones. There are no acute intra-abdominal or intrapelvic findings. 08/14/20 13:44 Medical decision making: This patient has no evidence of any acute medical issue at this time. I believe that she is stable for discharge to home. There are no clinical findings or radiographic findings or laboratory results that make me concerned that she needs to be admitted into the hospital for further evaluation and management. I discussed this with the patient and her daughter. We made a shared decision that the patient would be discharged to home. I informed them that I was here till 7:00 tomorrow morning and if symptoms are worse or they have further concerns they can always bring her back to the emergency room and we will reevaluate her. Counseled pt/family regarding: lab results, diagnosis, need for follow-up, rad results - Departure Departure Disposition: Home Clinical Impression: Weakness, Musculoskeletal pain Condition: Stable Critical Care Time: No Referrals: AALIYAH BAKER [Primary Care Provider] - Additional Instructions: Drink plenty of fluids. Take your medication as prescribed. Follow-up with you r primary care physician for further management. Return to the emergency department if your symptoms recur or worsen.
[2020-08-14] MEDS ORDERED: Sodium Chloride 0.9% 1000 ML 1,000 ML IV STA (11:34)
[2020-08-14] MEDS ORDERED: Sodium Chloride 0.9% 1000 ML 1,000 ML ONE (11:43)
[2020-08-14 11:56] LABS: Absolute Neutrophil Ct (ANC) 4.02 (1.4-6.9); BASOPHIL % 0.7 % (0.0-0.4); Basophil (Absolute #) 0.05 (0-0.4); Eosinophil % 0.7 % (0.00-5.0); Eosinophil (Absolute #) 0.05 (0-0.5); Hematocrit 38.7 % (35-47); Hemoglobin 12.2 gm/dl (12.0-16.0); Lymphocyte (Absolute #) 2.08 (1.0-4.6); Lymphocytes % 28.7 % (24.0-44.0); Mean Cell Volume 90.4 fl (78-100); Mean Corpuscular Hemoglobin 28.5 pg (26-32); Mean Corpuscular Hgb Concent. 31.5 g/dl (32-36); Mean Platelet Volume 10.4 fl (7.5-11.0); Monocyte (Absolute #) 1.04 (0.0-1.3); Monocytes % 14.4 % (0.0-12.0); Neutrophil % 55.5 % (36.0-66.0); Platelet Count 442 K/mm3 (150-450); Red Blood Count 4.28 M/mm3 (4.1-5.4); Red Cell Distribution Width 14.5 % (11.5-14.0); White Blood Count 7.2 K/mm3 (4.0-10.5)
[2020-08-14 12:01] LABS: ALBUMIN 4.2 g/dL (3.5-5.0); ALKALINE PHOSPHATASE 77 U/L (38-126); ANION GAP 12.7 MEQ/L (5-15); BLOOD UREA NITROGEN 12 mg/dL (7-17); CHLORIDE 102 mmol/L (98-107); Calcium 9.3 mg/dL (8.4-10.2); Carbon Dioxide 25 mmol/L (22-30); Creatinine 1 0.94 mg/dL (0.52-1.04); EST GLOMERULAR FILTRATION RATE > 60.0 ML/MIN; Glucose 93 mg/dL (74-106); MAGNESIUM 2.1 mg/dL (1.6-2.3); Potassium 4.1 mmol/L (3.5-5.1); SGOT/AST 30 U/L (14-36); SGPT/ALT 21 U/L (0-35); SODIUM 135 mmol/L (137-145); Total Protein 7.3 g/dL (6.3-8.2)
[2020-08-14 12:31] VITALS: O2SAT 97
[2020-08-14 12:41] LABS: Appearance CLEAR (CLEAR); Bilirubin NEGATIVE (NEGATIVE); Blood SMALL Ery/ul (0-5); Glucose NEGATIVE (NEGATIVE); Ketones NEGATIVE (NEGATIVE); Leukocyte Esterase SMALL (NEGATIVE); Nitrite NEGATIVE (NEGATIVE); Protein,Urine Dip NEGATIVE (Negative); RBC 0-2 /HPF (0-2); Urobilinogen NEGATIVE mg/dL (0-1)
--- NOTE | 2020-08-14 12:57 | XRAY ---
Exam: CT of the abdomen and pelvis without IV contrast from 08/14/2020. Comparison: None. Indication: 70-year-old female with abdominal pain. Evidently, the patient had a renal stone seen on a CT examination at [facility] on 08/09/2020, although she is not sure where it was located. She also complains of frequent urination. She has a history of prior appendectomy, cholecystectomy, tubal ligation, and hysterectomy. Technique: Non-IV contrast axial images were obtained through the abdomen and pelvis. Reconstructed coronal and sagittal images were created and reviewed. Findings: The patient has bilateral breast implants. I note some mild surface calcification on both implants. There is a small hiatal hernia present. The lung bases reveal minimal posterior dependent atelectatic changes. There is also some minimal linear scarring or atelectasis anteriorly laterally at the left lung base. The liver appears of unremarkable size and uniform attenuation. No intrahepatic biliary duct distention is seen. Surgical clips consistent with prior cholecystectomy are seen within the right upper quadrant. The spleen is not enlarged. No splenic mass is seen. The pancreas appears unremarkable. The adrenal glands appear normal. The kidneys are of average size and shape. A small extrarenal pelvis is seen within each kidney, although no definite renal calcifications or hydronephrosis is seen. No obvious renal mass is seen. On axial image #69, there is a 2.2 mm calcification adjacent to the anterior medial aspect of the right psoas muscle. I believe this is probably located just lateral to the upper pelvic right ureter rather than within the right ureter. Therefore, this may represent a granuloma. Correlate with urinalysis. No other suspicious calcifications are seen within the projection of either ureter. The urinary bladder is moderately distended. No urinary bladder stone is seen. Some atherosclerotic vascular calcification is seen within the abdominal aorta. There is no evidence of abdominal aortic aneurysm or abnormal retroperitoneal lymphadenopathy. There is no free intraperitoneal air. A tiny fat-containing umbilical hernia is seen on midline sagittal image #97. Surgical suture material or paco are seen within the lower anterior abdominal wall in the midline. I see no evidence of bowel obstruction. Some scattered fecal residue is seen throughout the colon. The appendix is not seen consistent with the patient's history of prior appendectomy. The uterus is also surgically absent. Some calcified phleboliths are seen within the lower pelvis bilaterally. No other suspicious pelvic mass, pelvic lymphadenopathy, or free fluid is seen. The skeleton reveals no acute fracture or aggressive bone lesion. I see findings consistent with moderate degenerative disc disease at L5-S1. I also see evidence of mild degenerative disc disease at L1-L2 and at T9-T10 and T10-T11. Impression: 1. No renal calculi are seen. I see no evidence of hydronephrosis. There is one small 2.2 mm calcification within the upper right hemipelvis which I believe is located just lateral to the upper pelvic portion of the right ureter. Therefore, this probably represents a granuloma. Correlate with urinalysis. No other suspicious calcifications are seen within the projection of either ureter. 2. The urinary bladder is moderately distended. No urinary bladder stone is seen. 3. Bilateral breast implants, small hiatal hernia, and evidence of prior cholecystectomy, appendectomy, and hysterectomy. 4. No other acute process is seen within the abdomen or pelvis.
[2020-08-14 13:25] VITALS: BP 180/92; PULSE 88
[2020-08-14 13:37] LABS: INFLUENZA A NEGATIVE (NEGATIVE); INFLUENZA B NEGATIVE (NEGATIVE)
== END 2020-08-14 14:02 | disposition home or self-care (01) ==
LOC: ED 10:29
DX: R53.1 Weakness (principal); M79.18 Myalgia, other site
CPT/HCPCS: 36000; 36415; 74176; 80053; 81001; 83605; 83735; 84436; 84443; 84484; 85025; 85379; 86308; 87040; 87086; 87400; 93005; 96360; 99284

== ENCOUNTER 2023-10-17 09:33 | Day surgery (SDC) | payer MEDICARE ==
--- NOTE | 2023-10-17 08:05 | HP ---
HISTORY OF PRESENT ILLNESS: The patient is a 73-year-old, history of reflux, gastric polyps, with some pills getting stuck in upper esophagus at times. PAST MEDICAL HISTORY: Macular degeneration, cataracts, arthritis, hypothyroidism, heartburn, sinus infection, had kidney dysfunction in the past stage 3. PAST SURGICAL HISTORY: Had cholecystectomy in the past, had foot surgery, tubal in the past, EGD and colonoscopy in the past, hysterectomy, cataract surgery in the past. FAMILY HISTORY: Negative with regard to this problem. SOCIAL HISTORY: No smoking or alcohol abuse. MEDICATIONS: PreserVision Areds capsules, Zyrtec, olmesartan, duloxetine, amlodipine, metoprolol, Synthroid. ALLERGIES: No known drug allergies. REVIEW OF SYSTEMS: Twelve systems reviewed. No chest pain or palpitations. Other systems negative or noncontributory as above and per preadmission questionnaire. PHYSICAL EXAMINATION: VITAL SIGNS: Height 5 feet 4 inches. BMI 24.3. GENERAL: No acute distress. HEENT: Sclerae nonicteric. Extraocular movements intact. NECK: No JVD. CHEST: Equal excursion, nonlabored breathing. CARDIOVASCULAR: Regular rate and rhythm. ABDOMEN: Soft. EXTREMITIES: No cyanosis or edema. NEUROLOGIC: Alert and oriented, moving extremities symmetrically. PSYCHIATRIC: Appropriate mood and affect. SKIN: Dry. IMPRESSION: Increased reflux, history of polyps, dysphagia upper esophagus. Needs EGD, possible biopsy, possible dilatation. Risks explained in detail including bleeding or infection; risk of perforation possibly requiring open procedure requiring transfer for stent placement; possibility of no improvement in swallowing; possibility of requiring other procedures, dilations, or referrals; risk of possible wound in the area of the dilator; possible neurologic or functional problem with dilatation being of no benefit; if dilatation performed and improve swallowing, it may need to be repeated again down the road. She understands all of the above but not limited to. The patient agrees to procedure. Otherwise continue medications for depression, reflux, thyroid disease, and eye problems. We will proceed with outpatient MAC anesthesia, EGD with possible dilatation and possible biopsy as an outpatient.
[2023-10-17] MEDS: Lactated Ringers 1,000 ML IV SCH (09:46)
[2023-10-17 10:00] VITALS: RESP 18
[2023-10-17] MEDS ORDERED: Xylocaine-Mpf 2% 5 Ml Vial ONE (12:11)
[2023-10-17] MEDS ORDERED: DIPRIVAN 200 MG/20 ML IV ONE (12:11)
[2023-10-17] MEDS ORDERED: Versed 2 MG/2 ML Injection ONE (12:12)
[2023-10-17 13:24] VITALS: BP 130/75; PULSE 64; TEMP 96.8; O2SAT 96
--- NOTE | 2023-10-18 09:55 | OP ---
SURGERY DATE/TIME: 10/17/2023 1220 - 1233 PREOPERATIVE DIAGNOSES: 1) Dysphagia, upper esophagus. 2) History of reflux. POSTOPERATIVE DIAGNOSES: 1) Proximal esophageal narrowing spasm requiring dilatation. 2) Tiny 2-2.5 cm hiatal hernia. 3) Gastritis. PROCEDURE: 1) Esophagogastroduodenoscopy. 2) Cold biopsy of antrum for Helicobacter pylori. 3) Cold biopsy of distal esophagus. 4) Proximal esophageal dilatation (size 20 balloon). SURGEON: Ze Seo MD ANESTHESIA: MAC. ESTIMATED BLOOD LOSS: Minimal. INDICATIONS: Overall risk was explained in detail and consent was obtained. DESCRIPTION OF PROCEDURE AND FINDINGS: Patient was taken to the endoscopy room. MAC anesthesia induced. After official time-out and no disagreement in planned procedure, the videogastroscope was easily passed down the oropharynx. There was some proximal esophageal narrowing and spasm. The scope was able to slide through here but she was having symptoms here we felt that warranted dilatation at the end of the procedure. The scope was then passed through the patent pylorus, through the junction of the third and fourth portions of the duodenum. Visualized duodenum was unremarkable. Scope was pulled back down into stomach. She did have some mild to moderate gastritis. Cold biopsy taken of the antrum for H pylori. There are no visible ulcers. On retroflex, there was just a tiny minimal hiatal hernia that just about double the size of the scope. The scope was patent. The GE junction was about 35 cm and there is minimal distal esophageal inflammation, a short segment of just a couple of millimeters. The remainder of the esophageal mucosa was unremarkable. Scope pulled back up into the proximal esophagus where it was narrow. Again, it was felt this warranted being dilated. There is no mass or lesion to biopsy, but it was felt it warranted dilatation. Scope passed back down into the stomach. At this point, the balloon dilator catheter was carefully passed down through the scope down into the stomach and the opening and then pulled back up to the narrowed area of proximal esophagus and carefully inflated. The first 2 stages for 15-30 seconds, size 18/19 and finally the size 20 balloon dilator left inflated for about 1 minute and 45 seconds. The balloon catheter was then decompressed and withdrawn. The scope more easily went through this area. There were some minimal mucosal abrasions but no signs of any focal disease secondary to dilatation. Scope was withdrawn. The patient tolerated the procedure well. There were no immediate complications. Findings discussed with family out in the waiting area.
== END 2023-10-17 13:28 | disposition home or self-care (01) ==
LOC: SDC 09:33
PROVIDERS: ATTEND Surgery
DX: K29.70 Gastritis, unspecified, without bleeding (principal); R13.10 Dysphagia, unspecified; Z87.19 Personal history of other diseases of the digestive system; K22.2 Esophageal obstruction; K44.9 Diaphragmatic hernia without obstruction or gangrene
CPT/HCPCS: 99100; C1726; J2250; J2704